=== PATIENT | male | born 1950 | race Caucasian/White ===

== ENCOUNTER → 2019-03-02 | Outpatient (CLI) | payer MEDICARE ==
[~2019-03-02] MED LIST: METHACHOLINE KIT (J7674) INH ONE
--- NOTE | 2019-03-02 10:20 | PFTRPT ---
Height: 70.00 Inches Weight: 180.00 Lbs BSA: 2.00 Diagnosis: R06.00 DATE OF STUDY: 03/02/2019 ORDERED BY: Dr. Sloan INTERPRETATION: Study of excellent technical quality. Under protocol, methacholine was administered. At a dose of 25 mg or 188.875 CDUs, a 20% decline in the FEV1 was noted. PC of 24.28 does not meet diagnostic criteria, however. Flow rates did return to baseline post bronchodilator administration. IMPRESSION: Negative/nondiagnostic methacholine challenge. Please correlate clinically. MTDD
== END ==
LOC: M CARPUL 09:25
PROVIDERS: ATTEND Internal Medicine Pulmonary Disease
DX: R06.00 Dyspnea, unspecified (principal)
CPT/HCPCS: 94070; 95070; J7674

== ENCOUNTER → 2023-06-19 | Outpatient (REF) | payer MEDICARE ==
[2023-06-19 18:43] LABS: HEMOGLOBIN 12.6 g/dl (13.5-17.5); MEAN CORPUSCULAR HEMOGLOBIN 29.2 pg (27.0-33.0); MEAN CORPUSCULAR HGB CONC 33.2 g/dl (32.0-36.5); PLATELET COUNT, AUTOMATED 169 10^3/uL (150-450); RED BLOOD COUNT 4.32 10^6/uL (4.30-6.10); WHITE BLOOD COUNT 7.5 10^3/uL (4.0-10.0)
[2023-06-25 17:11] LABS: ASPERGILLUS FLAVUS ABY Negative (Neg:<1:1); ASPERGILLUS FUMIGATUS ABY Negative (Neg:<1:1); ASPERGILLUS NIGER ABY Negative (Neg:<1:1); BLASTOMYCES ABY Negative (Neg:<1:1)
== END ==
LOC: M LAB REF 17:34
PROVIDERS: ATTEND Internal Medicine Pulmonary Disease
DX: R91.8 Other nonspecific abnormal finding of lung field (principal)